=== PATIENT | male | born 1960 | race Caucasian/White ===

== ENCOUNTER 2018-11-10 10:37 | Emergency (ER) | payer OTHER, SELFPAY ==
[2018-11-10 10:38] VITALS: BP 123/75; PULSE 80; RESP 16; TEMP 36.7; BMI 29.6
--- NOTE | 2018-11-10 10:48 | EKG12_ITS ---
Test Reason : NUMBNESS/TINGLING Blood Pressure : / mmHG Vent. Rate : 073 BPM Atrial Rate : 073 BPM P-R Int : 160 ms QRS Dur : 088 ms QT Int : 398 ms P-R-T Axes : 056 020 038 degrees QTc Int : 438 ms Normal sinus rhythm Normal ECG Confirmed by TAWNYA IBARRA, SARAH BETH ([id number]), editor at large TIFFANIE SHAIKH ([id number]) on 11/12/2018 2:03:24 PM Referred By: THOMAS Confirmed By:SARAH BETH BOWLING MD
--- NOTE | 2018-11-10 10:53 | ED.DCSUM_ITS ---
- ER Visit Summary Date of Service: 11/10/18 Chief Complaint: [Numbness and tingling to body] History of Present Illness: The patient is a 58 M [presents to the emergency department with complaint of numbness and tingling to his entire body. Patient states that he just finished making eating breakfast when he started getting a watson of blood from his legs into his body and all the way up into his head. Patient states both legs were involved as well as his abdomen and chest and then he noticed it in his left arm and head and face however he states is also in his right arm. He denies any headache. Patient has had similar symptoms in the past but usually resolve pretty quickly. Patient is currently being treated with escitalopram for anxiety. He denies any chest pain. He complains of some mild shortness of breath. Patient does feel anxious. Patient states that he was evaluated for this several years ago no etiology was found. He denies any weakness in extremities. He denies difficulty with speech or vision. Denies recent illness. [place] and [place] are not from the area. Patient has history of hypertension, high cholesterol, and anxiety.] Physical Examination: [HEENT-PERRLA, EOMI. Cranial nerves II through XII grossly intact. TMs clear. Mucous membranes moist. No adenopathy. Cardiovascular-regular rate and rhythm without murmur or ectopy Lungs-clear to auscultation, chest wall stable without crepitus or subcu emph ysema Abdomen-normoactive bowel sounds, soft, nontender, no rebound or rigidity, no peritoneal signs. Neuro hglu-rkwjfl-lx-nose and kqfp-sc-yape testing within normal limits, negative Romberg, negative , Fundi benign. No facial droop. No dysarthria. Extremities-intact ?4, normal range of motion, normal pulses, atraumatic] Test Results: [EKG obtained on arrival shows sinus rhythm with a ventricular rate of 73 bpm with no acute segment changes. CBC with a normal. Chemistries unremarkable. BUN was 19 and creatinine 1.33. Troponin is less than 0.015.] Emergency Department Course and Treatment: [Received Ativan 1 mg IV and his symptoms resolved. Patient feels back to his baseline. She now tells me that he forgot to take his Xanax last night that he normally takes to help him sleep at night. She states that he only takes it when he needs it to sleep and often on weekends will not take it.] Treatment Plan: [Patient to follow-up with primary care physician in 3 to 5 days.] Disposition: [Discharged home stable condition.] Impression: [Anxiety reaction Paresthesias-resolved] This note was generated with [employer] dictation software. It may contain incorrect words, spelling, and punctuation that were not noted in review of the chart prior to signing
--- NOTE | 2018-11-10 10:53 | NURSING ---
NO OLD EKGS
[2018-11-10] MEDS: LORazepam 2 MG/ML Syringe 1 MG IV (11:13)
[2018-11-10] MEDS: 0.9% Normal Saline 1,000 ML 150 ML IV (11:13)
[2018-11-10 11:17] LABS: Absolute Lymphocyte Count 2.36 X10^3/ul (0.83-4.51); Absolute Neutrophil Count 6.6 X10^3/uL (2.0-7.7); Basophil# 0.03 X10^3/uL; Basophil% 0.3 % (0-1); Eosinophil# 0.22 X10^3/uL; Eosinophils% 2.3 % (0-5); Hematocrit 43.3 % (40-54); Hemoglobin 15.2 g/dl (13.0-16.5); Lymphocyte # 2.36 X10^3/ul (4.0); Lymphocyte % 24.4 % (19-41); Mean Corp Hgb Conc 35.1 g/gl (32-36); Mean Corpuscular Hgb 29.6 pg (27.0-32.0); Mean Corpuscular Volume 84.4 fL (80-94); Mean Platelet Vol. 11.4 fl (6.2-12.0); Monocyte# 0.38 X10^3/uL; Monocyte% 3.9 % (0-10); Neutrophil # 6.63 X10^3/uL (2.7-7.7); Neutrophil % 68.7 % (47-70); Platelet Count 208 K/mm3 (150-450); RBC Distribution Width CV 14.2 % (11.6-14.6); RBC Distribution Width SD 43.6 fl (35.1-43.9); Red Blood Count 5.13 M/mm3 (4.6-6.2); White Blood Count 9.7 K/mm3 (4.4-11.0)
[2018-11-10 11:18] LABS: POSITIVE COUNT NO; POSITIVE DIFFERENTIAL NO; POSITIVE MORPHOLOGY NO
[2018-11-10 11:32] LABS: Anion Gap 5 (5-15); BUN 19 mg/dL (7-18); BUN/Creat Ratio 14.3 RATIO (10-20); Calcium,Total 8.8 mg/dL (8.5-10.1); Chloride 104 mmol/L (98-107); Creatinine, Serum 1.33 mg/dL (0.70-1.30); EST Glomerular Filtration Rate 58 mL/min (>60); Est Glom Filt Rate - Afr Amer 71 mL/min (>60); Estimated Creatinine Clearance 57.86 ml/min; Glucose 133 mg/dL (74-106); Potassium 3.5 mmol/L (3.5-5.1); Sodium Level 135 mmol/L (136-145)
[2018-11-10 11:41] VITALS: BP 131/72; PULSE 66; RESP 17; O2SAT 97
[2018-11-10 12:00] VITALS: RESP 12
--- NOTE | 2018-11-10 12:03 | ED.DEP ---
ED Disposition - Plan for ED Patient: Instructions: Panic Attack, Paraesthesias Referrals: [facility] Doctor,Out of [Primary Care Provider] - 3-5 Days
[2018-11-10 12:11] VITALS: BP 134/73; PULSE 68; RESP 16; O2SAT 97
== END 2018-11-10 12:11 | disposition home or self-care (01) ==
LOC: ED 11:51
PROVIDERS: Emergency Provider Emergency Medicine
DX: F41.1 Generalized anxiety disorder (principal); R20.2 Paresthesia of skin; I10 Essential (primary) hypertension; E78.00 Pure hypercholesterolemia, unspecified; Z72.0 Tobacco use
CPT/HCPCS: 80048; 84484; 85025; 93005; 96361; 96374; 99283; J7030